=== PATIENT | female | born 1980 | race Caucasian/White ===

== ENCOUNTER 2016-05-29 08:58 | Emergency (ER) | payer OTHER ==
[2016-05-29] MEDS ORDERED: LIDOCAINE 1% INJ-PF (10 MG/ML) 30 ML SDV ONE (10:07)
[2016-05-29] MEDS ORDERED: OXYCODONE-ACETAMINOPHEN 5-325 MG TABLET PO ONE (10:40)
[2016-05-29] MEDS ORDERED: CEPHALEXIN 500 MG CAPSULE PO ONE (10:40)
[2016-05-29] MEDS ORDERED: SULFAMETHOXAZOLE/TRIMETHOPRIM 800-160 MG TABLET PO ONE (10:40)
[2016-05-29] MEDS ORDERED: LIDOCAINE 1% INJ-PF (10 MG/ML) 30 ML SDV INJ ONE (10:40)
--- NOTE | 2016-05-29 10:47 | ER Document Report ---
ED Skin Rash/Insect Bite/Abscs - General Chief Complaint: Abscess Stated Complaint: SKIN CONCERN Time seen by provider: 09:00 Mode of Arrival: Ambulatory Information source: Patient Notes: 36-year-old female presents to ED for abscess to the left side gluteal fold for the last 4 days with increased pain, swelling, and redness over the last 4 day. TRAVEL OUTSIDE OF THE [place] IN LAST 30 DAYS: No - HPI Patient complains to provider of: Tender/swollen area Onset: Other - 4 days Onset/Duration: Gradual, Persistent Quality of pain: Burning, Sharp Severity: Severe Pain Level: 5 Skin Character: Abscess - Left gluteal fold left buttocks Skin Temperature: Warm Quality of rash: Painful Identify cause: No Exacerbated by: Standing, Movement, Walking Relieved by: Denies Similar symptoms previously: Yes Recently seen / treated by doctor: No - Related Data Allergies/Adverse Reactions: No Known Allergies Allergy (Verified 05/29/16 09:08) Past Medical History - General Information source: Patient - Social History Smoking Status: Current Every Day Smoker Cigarette use (# per day): Yes - pack per day Chew tobacco use (# tins/day): Yes Smoking Education Provided: Yes Frequency of alcohol use: Social Drug Abuse: None Occupation: [employer] Lives with: Spouse/Significant other Family History: Arthritis, CAD, CVA, DM, Hypertension Patient has suicidal ideation: No Patient has homicidal ideation: No - Past Medical History Cardiac Medical History: Reports: None Pulmonary Medical History: Reports: None EENT Medical History: Reports: None Neurological Medical History: Reports: None Endocrine Medical History: Reports: None Renal/ Medical History: Reports: None Malignancy Medical History: Reports: None GI Medical History: Reports: None Musculoskeltal Medical History: Reports None Skin Medical History: Reports None Psychiatric Medical History: Reports: None Traumatic Medical History: Reports: None Infectious Medical History: Reports: None Surgical Hx: Negative Past Surgical History: Reports: None Review of Systems - Review of Systems Constitutional: No symptoms reported EENT: No symptoms reported Cardiovascular: No symptoms reported Respiratory: No symptoms reported Gastrointestinal: No symptoms reported Genitourinary: No symptoms reported Female Genitourinary: No symptoms reported Musculoskeletal: No symptoms reported Skin: Other - Large abscess to the left buttocks at the gluteal fold Hematologic/Lymphatic: No symptoms reported Neurological/Psychological: No symptoms reported -: Yes All other systems reviewed and negative Physical Exam - Vital signs Vitals: Temp Pulse Resp BP Pulse Ox 97.6 F 92 16 133/85 H 99 05/29/16 09:03 05/29/16 09:03 05/29/16 09:03 05/29/16 09:03 05/29/16 09:03 Interpretation: Normal - General General appearance: Appears well, Alert - HEENT Head: Normocephalic, Atraumatic Eyes: Normal Pupils: PERRL - Respiratory Respiratory status: No respiratory distress Chest status: Nontender Breath sounds: Normal Chest palpation: Normal - Cardiovascular Rhythm: Regular Heart sounds: Normal auscultation Murmur: No - Abdominal Inspection: Normal Distension: No distension Bowel sounds: Normal Tenderness: Nontender Organomegaly: No organomegaly - Back Back: Normal, Nontender - Extremities General upper extremity: Normal inspection, Nontender, Normal color, Normal ROM , Normal temperature General lower extremity: Normal inspection, Nontender, Normal color, Normal ROM , Normal temperature, Normal weight bearing. No: Maldonado's sign - Neurological Neuro grossly intact: Yes Cognition: Normal Orientation: AAOx4 [place] Coma Scale Eye Opening: Spontaneous Boris Coma Scale Verbal: Oriented Boris Coma Scale Motor: Obeys Commands [place] Coma Scale Total: 15 Speech: Normal Motor strength normal: LUE, RUE, LLE, RLE Sensory: Normal - Psychological Associated symptoms: Normal affect, Normal mood - Skin Skin Temperature: Warm Skin Moisture: Dry Skin Color: Normal Skin irregularity: Abscess - Left buttocks at the gluteal fold Course - Re-evaluation Re-evalutation: 05/29/16 11:30 Patient treated with Septra Keflex and Percocet and discharged home with prescriptions for Keflex and Septra and Percocet. Patient to return in 2 days to have packing removed and possibly replaced. - Vital Signs Vital signs: Temp Pulse Resp BP Pulse Ox 97.8 F 91 20 136/90 H 96 05/29/16 10:58 05/29/16 10:58 05/29/16 10:58 05/29/16 10:58 05/29/16 10:58 Procedures - Incision and Drainage Left Buttock Type: Complex Anesthetic type: 1% Lidocaine mL's of anesthetic: 10 Blade size: 11 I&D procedure: Betadine prep applied, Iodoform packing placed, Sterile dressing applied Incision Method: Incision made by scalpel Amount/type of drainage: copious amounts of purulent foul-smelling drainage Discharge - Discharge Clinical Impression: Abscess Condition: Stable Disposition: HOME, SELF-CARE Instructions: Family Physicians / Practices Additional Instructions: ABSCESS: You have an abscess (boil). This a pus-forming infection, usually due to staph. Some boils may be left to drain on their own, but most require lancing. From the time the tender lump first appears, it may be three or four days before the abscess is ready to bam. Local heat and rest help at this stage of treatment. An antibiotic may prevent spread of the infection. Once the abscess is opened, packing may be placed into it. This is done so pus is not sealed inside by premature closure of the cavity. The packing will be removed at your follow-up visit or you may be advised to remove it yourself at home. Sometimes this packing must be replaced a few times during healing. The wound will heal with surprisingly little scar. Depending on the size and location of an abscess, healing can take one to four weeks. You may shower and wash the area around the incision site two or three times a day. Antibiotics may be prescribed, but are usually not necessary after an abscess has been drained. If you develop fever, chills, worsening pain, or increasing swelling in the area, call the doctor or return immediately. POST INCISION AND DRAINAGE: You have had an incision made to allow drainage of an abscess. The incision must remain open so that pus and debris can drain from the wound. If the abscess cavity is large, packing is placed. This keeps the tissues from collapsing and trapping pus inside, while the body shrinks the cavity. The packing may need to be replaced every day or two. The physician will instruct you on the packing. Keep a bulky dressing over the area. Replace it if it becomes saturated with blood or pus. Do not disturb the packing (if present). You may shower and cleanse the area with gentle soap and warm water two or three times a day. Local warmth may be soothing, and may promote faster healing. Return if you develop high fever or chills, or if you note spreading redness, increasing swelling, or increasing tenderness. ORAL NARCOTIC MEDICATION: You have been given a prescription for pain control. This medication is a narcotic. It's best taken with food, as nausea can result if taken on an empty stomach. Don't operate machinery or drive within six hours of taking this medication. Do not combine this medicine with alcohol, or with any medication which can cause sedation (such as cold tablets or sleeping pills) unless you get permission from the physician. Narcotics tend to cause constipation. If possible, drink plenty of fluids and eat a diet high in fiber and fruits. CEPHALEXIN: The antibiotic you've been prescribed is a member of the cephalosporin class. This type of antibiotic covers a wide variety of infections, including those of the skin, lungs, and urinary tract. It's useful for staph infections. This antibiotic is slightly similar to the penicillin family. In rare cases , a person who is allergic to penicillin will also be allergic to this medication. If you have had a severe allergic reaction to penicillin, and have not taken this antibiotic since that time, notify your doctor. Antibiotics which cover many germs ("broad spectrum" antibiotics) are more likely to cause diarrhea or "yeast" infections. Women prone to vaginal yeast problems may suffer an attack after taking this antibiotic. In infants, oral thrush (white spots "stuck" on the cheek) or yeast diaper rash may result. See your doctor if these problems occur. Call at once if you develop itching, hives , shortness of breath, or lightheadedness. TRIMETHOPRIM-SULFA: You have been given a prescription for trimethoprim-sulfa (TMS, Septra, Bactrim). This is a combination antibiotic of the sulfa class, often used for urinary tract infections, middle ear infections, bronchitis, shigella intestinal infection, and Pneumocystis pneumonia. TMS is usually well-tolerated. Occasional side effects include nausea and decreased appetite. Septra is not recommended for infants less than two months of age. Do not take this medication if you have experienced severe side effects or allergy to sulfa medicine. You should stop this medicine at once and contact your physician if you develop any rash, joint pain, shortness of breath, bruising, or jaundice ( yellow color in the skin), or if you develop any other new or unusual symptoms. FOLLOW-UP CARE: Most simple abscesses will not require a follow up visit. If you had packing placed in the abscess, remove it as instructed by the physician. If you have been referred to a physician for follow-up care, call the physicians office for an appointment as you were instructed or within the next two days. If you experience worsening or a significant change in your symptoms, return to the Emergency Department at any time for re-evaluation. Please return to the emergency room in 48 hours to have this reassessed and possibly repacked. Please bring your packing back with you in case it needs to be repacked. Prescriptions: Oxycodone HCl/Acetaminophen [Percocet 5-325 mg Tablet] 1 tab PO Q6HP PRN #20 tablet PRN Reason: Cephalexin Monohydrate [Keflex 500 mg Capsule] 500 mg PO QID #40 capsule Sulfamethoxazole/Trimethoprim [Septra-Ds 800-160 mg Tablet] 1 tab PO BID #20 tablet Forms: Return to Work
[2016-05-29 11:02] VITALS: BP 136/90
== END 2016-05-29 11:02 | disposition home or self-care (01) ==
LOC: ER 08:58
PROC: 0H98XZZ Drainage of Buttock Skin, External Approach (ICD-10-PCS; principal; 2016-05-29)
DX: L02.31 Cutaneous abscess of buttock (principal); F17.210 Nicotine dependence, cigarettes, uncomplicated
CPT/HCPCS: 10060; 99283; 87070; 87205; 87075; 87077; J3490

== ENCOUNTER 2016-12-14 14:26 | Emergency (ER) | payer OTHER ==
--- NOTE | 2016-12-14 15:33 | ER Document Report ---
ED Skin Rash/Insect Bite/Abscs - General Chief Complaint: Abscess Stated Complaint: ABSCESS Time Seen by Provider: 12/14/16 15:20 Mode of Arrival: Ambulatory Information source: Patient Notes: 36-year-old female presents to ED for vaginal abscess since Saturday. She states she was seen a couple months ago for a abscess at the same area and had an I&D done and was placed on Keflex and Septra and it went away. TRAVEL OUTSIDE OF THE [place] IN LAST 30 DAYS: No - HPI Patient complains to provider of: Tender/swollen area Onset: Other - Saturday Onset/Duration: Gradual Quality of pain: Sharp Severity: Moderate Pain Level: 4 Skin Character: Abscess Quality of rash: Painful Identify cause: No Exacerbated by: Denies Relieved by: Denies Similar symptoms previously: Yes Recently seen / treated by doctor: No - Related Data Allergies/Adverse Reactions: No Known Allergies Allergy (Verified 12/14/16 14:32) Past Medical History - General Information source: Patient - Social History Smoking Status: Current Every Day Smoker Cigarette use (# per day): Yes - Pack per day Chew tobacco use (# tins/day): No Smoking Education Provided: Yes - Less than 2 minutes Frequency of alcohol use: Social Drug Abuse: None Occupation: [employer] Lives with: Spouse/Significant other Family History: Arthritis, CAD, CVA, DM, Hypertension Patient has suicidal ideation: No Patient has homicidal ideation: No - Past Medical History Cardiac Medical History: Reports: None Pulmonary Medical History: Reports: None EENT Medical History: Reports: None Neurological Medical History: Reports: None Endocrine Medical History: Reports: Hx Diabetes Mellitus Type 2 Renal/ Medical History: Reports: None Malignancy Medical History: Reports: None GI Medical History: Reports: None Musculoskeltal Medical History: Reports None Skin Medical History: Reports Hx Cellulitis Psychiatric Medical History: Reports: None Traumatic Medical History: Reports: None Infectious Medical History: Reports: None Past Surgical History: Reports: Hx Section - Immunizations Immunizations up to date: Yes Review of Systems - Review of Systems Constitutional: No symptoms reported EENT: No symptoms reported Cardiovascular: No symptoms reported Respiratory: No symptoms reported Gastrointestinal: No symptoms reported Genitourinary: No symptoms reported Female Genitourinary: No symptoms reported, Other - Painful tender swollen area to her left labia Musculoskeletal: No symptoms reported Skin: Other - Left Bartholin cyst Hematologic/Lymphatic: No symptoms reported Neurological/Psychological: No symptoms reported -: Yes All other systems reviewed and negative Physical Exam - Vital signs Vitals: Temp Pulse Resp BP Pulse Ox 98.5 F 96 14 145/84 H 98 12/14/16 14:32 12/14/16 14:32 12/14/16 14:32 12/14/16 14:32 12/14/16 14:32 Interpretation: Normal - General General appearance: Appears well, Alert - HEENT Head: Normocephalic, Atraumatic Eyes: Normal Pupils: PERRL - Respiratory Respiratory status: No respiratory distress Chest status: Nontender Breath sounds: Normal Chest palpation: Normal - Cardiovascular Rhythm: Regular Heart sounds: Normal auscultation Murmur: No - Abdominal Inspection: Normal Distension: No distension Bowel sounds: Normal Tenderness: Nontender Organomegaly: No organomegaly - Genitourinary External exam: Other - Left Bartholin cyst - Back Back: Normal, Nontender - Extremities General upper extremity: Normal inspection, Nontender, Normal color, Normal ROM , Normal temperature General lower extremity: Normal inspection, Nontender, Normal color, Normal ROM , Normal temperature, Normal weight bearing. No: Maldonado's sign - Neurological Neuro grossly intact: Yes Cognition: Normal Orientation: AAOx4 Boris Coma Scale Eye Opening: Spontaneous [place] Coma Scale Verbal: Oriented Boris Coma Scale Motor: Obeys Commands [place] Coma Scale Total: 15 Speech: Normal Motor strength normal: LUE, RUE, LLE, RLE Sensory: Normal - Psychological Associated symptoms: Normal affect, Normal mood - Skin Skin Temperature: Warm Skin Moisture: Dry Skin Color: Normal Skin irregularity: Abscess - Left Bartholin cyst Course - Vital Signs Vital signs: Temp Pulse Resp BP Pulse Ox 98.6 F 84 18 128/78 H 100 12/14/16 17:39 12/14/16 17:39 12/14/16 17:39 12/14/16 17:39 12/14/16 17:39 Procedures - Incision and Drainage Left Labia Type: Simple Anesthetic type: 1% Lidocaine mL's of anesthetic: 3 Blade size: 11 I&D procedure: Sterile dressing applied, Other - Surgical scrub Incision Method: Incision made by scalpel Amount/type of drainage: Very minimal purulent Discharge - Discharge Clinical Impression: Bartholin cyst Condition: Stable Disposition: HOME, SELF-CARE Instructions: Family Physicians / Practices Additional Instructions: Bartholin Gland Cyst or Abcess The Bartholin glands are located on each side of the entrance to the vagina. These glands secrete lubricating fluid. If a gland becomes plugged, it can create a "Bartholin's cyst." This creates a large bulge on one side of the labia. A cyst is usually not very painful. If a Bartholin's cyst or gland becomes infected, it creates an abscess. This is a painful collection of pus. One side of the labia becomes swollen, red , and painful. It will be very painful to walk or sit. When a Bartholin's cyst causes mild symptoms, it can sometimes be treated with sitz baths and antibiotics. A painful abscess usually needs to be drained ( lanced). If there are signs of infection in the tissues around the abscess, we prescribe antibiotics. Antibiotics are not always necessary for an abscess that' s been drained. If packing has been placed, it's important to follow up as scheduled for removal or replacement of the packing. Return if you have increasing fever, body aches, lightheadedness, or if the swelling and pain is getting worse. POST INCISION AND DRAINAGE: You have had an incision made to allow drainage of an abscess. The incision must remain open so that pus and debris can drain from the wound. If the abscess cavity is large, packing is placed. This keeps the tissues from collapsing and trapping pus inside, while the body shrinks the cavity. The packing may need to be replaced every day or two. The physician will instruct you on the packing. Keep a bulky dressing over the area. Replace it if it becomes saturated with blood or pus. Do not disturb the packing (if present). You may shower and cleanse the area with gentle soap and warm water two or three times a day. Local warmth may be soothing, and may promote faster healing. Return if you develop high fever or chills, or if you note spreading redness, increasing swelling, or increasing tenderness. ORAL NARCOTIC MEDICATION: You have been given a prescription for pain control. This medication is a narcotic. It's best taken with food, as nausea can result if taken on an empty stomach. Don't operate machinery or drive within six hours of taking this medication. Do not combine this medicine with alcohol, or with any medication which can cause sedation (such as cold tablets or sleeping pills) unless you get permission from the physician. Narcotics tend to cause constipation. If possible, drink plenty of fluids and eat a diet high in fiber and fruits. Epsom Salt Soaks Soak the wound area in a container of warm epsom salt water. If you can't get the wound area into a bucket or blount, use a folded towel soaked in the epsom salt solution and apply to the area. Use clean hot tap water (about the temperature of a very warm bath), mixing in about one (1) teaspoon for every pint of water. Two gallon --> 16 teaspoons Epsom Salts One gallon --> 8 teaspoons Epsom Salts Two quarts --> 4 teaspoons Epsom Salts One quart --> 2 teaspoons Epsom Salts Soak the wound for about 20 minutes while gently moving it around in the water. Repeat this four (4) times a day. CEPHALEXIN: The antibiotic you've been dispense pack of [place] is a member of the cephalosporin class. This type of antibiotic covers a wide variety of infections, including those of the skin, lungs, and urinary tract. It's useful for staph infections. This antibiotic is slightly similar to the penicillin family. In rare cases , a person who is allergic to penicillin will also be allergic to this medication. If you have had a severe allergic reaction to penicillin, and have not taken this antibiotic since that time, notify your doctor. Antibiotics which cover many germs ("broad spectrum" antibiotics) are more likely to cause diarrhea or "yeast" infections. Women prone to vaginal yeast problems may suffer an attack after taking this antibiotic. In infants, oral thrush (white spots "stuck" on the cheek) or yeast diaper rash may result. See your doctor if these problems occur. Call at once if you develop itching, hives , shortness of breath, or lightheadedness. TRIMETHOPRIM-SULFA: You have been given a prescription for trimethoprim-sulfa (TMS, Septra, Bactrim). This is a combination antibiotic of the sulfa class, often used for urinary tract infections, middle ear infections, bronchitis, shigella intestinal infection, and Pneumocystis pneumonia. TMS is usually well-tolerated. Occasional side effects include nausea and decreased appetite. Septra is not recommended for infants less than two months of age. Do not take this medication if you have experienced severe side effects or allergy to sulfa medicine. You should stop this medicine at once and contact your physician if you develop any rash, joint pain, shortness of breath, bruising, or jaundice ( yellow color in the skin), or if you develop any other new or unusual symptoms. FOLLOW-UP CARE: Most simple abscesses will not require a follow up visit. If you had packing placed in the abscess, remove it as instructed by the physician. If you have been referred to a physician for follow-up care, call the physicians office for an appointment as you were instructed or within the next two days. If you experience worsening or a significant change in your symptoms, return to the Emergency Department at any time for re-evaluation. Prescriptions: Cephalexin Monohydrate [Keflex 500 mg Capsule] 500 mg PO QID #20 capsule Sulfamethoxazole/Trimethoprim [Septra-Ds 800-160 mg Tablet] 1 tab PO BID #20 tablet Forms: Elevated Blood Pressure, Smoking Cessation Education
[2016-12-14] MEDS ORDERED: HYDROCODONE/ACETAMINOPHEN 5-325 MG 6 TAB/DSPK PO PRN (16:55)
[2016-12-14] MEDS ORDERED: CEPHALEXIN 500 MG CAPSULE PO ONE (16:55)
[2016-12-14] MEDS ORDERED: SULFAMETHOXAZOLE/TRIMETHOPRIM 800-160 MG TABLET PO ONE (16:55)
[2016-12-14 17:40] VITALS: BP 128/78
== END 2016-12-14 17:39 | disposition home or self-care (01) ==
LOC: ER 14:26
PROC: 0U9L0ZZ Drainage of Vestibular Gland, Open Approach (ICD-10-PCS; principal; 2016-12-14)
DX: N75.0 Cyst of Bartholin's gland (principal); F17.210 Nicotine dependence, cigarettes, uncomplicated
CPT/HCPCS: 99283

== ENCOUNTER 2016-12-16 14:47 | Emergency (ER) | payer OTHER ==
[2016-12-16 14:51] VITALS: BP 165/96
[2016-12-16] MEDS ORDERED: LIDOCAINE 1% INJ-PF (10 MG/ML) 30 ML SDV INJ ONE (15:23)
--- NOTE | 2016-12-16 15:28 | ER Document Report ---
ED Skin Rash/Insect Bite/Abscs - General Chief Complaint: Abscess Recheck Stated Complaint: ABSCESS Time Seen by Provider: 12/16/16 15:13 Mode of Arrival: Ambulatory Information source: Patient Notes: 36-year-old female presents to ED for vaginal abscess to the left labia. She states that when she came in here on Saturday and drained well Saturday but by Saturday it had slowed down and stopped by the end of the day. She states she did not soak in the absence of but she has been taking her antibiotics as instructed. She states as Saturday progressed the swelling increased and it is become bigger today. She states that she feels like she is sitting on a golf ball. TRAVEL OUTSIDE OF THE [place] IN LAST 30 DAYS: No - HPI Patient complains to provider of: Tender/swollen area Onset: Other - Saturday Onset/Duration: Gradual, Worse Quality of pain: Pressure, Sharp Severity: Severe Pain Level: 5 Skin Character: Abscess, Swelling Quality of rash: Painful Exacerbated by: Movement, Walking Relieved by: Denies Similar symptoms previously: Yes Recently seen / treated by doctor: Yes - Related Data Allergies/Adverse Reactions: No Known Allergies Allergy (Verified 12/16/16 14:48) Past Medical History - General Information source: Patient - Social History Smoking Status: Current Every Day Smoker Cigarette use (# per day): Yes - ppd Chew tobacco use (# tins/day): No Smoking Education Provided: Yes - less than 2 min Frequency of alcohol use: Occasional Drug Abuse: None, Marijuana Family History: Arthritis, CAD, CVA, DM, Hypertension Patient has suicidal ideation: No Patient has homicidal ideation: No - Past Medical History Cardiac Medical History: Reports: None Pulmonary Medical History: Reports: None EENT Medical History: Reports: None Neurological Medical History: Reports: None Endocrine Medical History: Reports: Hx Diabetes Mellitus Type 2 Malignancy Medical History: Reports: None GI Medical History: Reports: None Musculoskeltal Medical History: Reports None Skin Medical History: Reports Hx Cellulitis - bartholin cyst Psychiatric Medical History: Reports: None Traumatic Medical History: Reports: None Infectious Medical History: Reports: None Past Surgical History: Reports: Hx Section - Immunizations Immunizations up to date: Yes Review of Systems - Review of Systems Constitutional: No symptoms reported EENT: No symptoms reported Cardiovascular: No symptoms reported Respiratory: No symptoms reported Gastrointestinal: No symptoms reported Genitourinary: No symptoms reported Female Genitourinary: Other - Painful left Bartholin's cyst increased in size Musculoskeletal: No symptoms reported Skin: No symptoms reported Hematologic/Lymphatic: No symptoms reported Neurological/Psychological: No symptoms reported -: Yes All other systems reviewed and negative Physical Exam - Vital signs Vitals: Temp Pulse Resp BP Pulse Ox 98.4 F 100 18 165/96 H 98 12/16/16 14:49 12/16/16 14:49 12/16/16 14:49 12/16/16 14:49 12/16/16 14:49 Interpretation: Normal - General General appearance: Appears well, Alert - HEENT Head: Normocephalic, Atraumatic Eyes: Normal Pupils: PERRL - Respiratory Respiratory status: No respiratory distress Chest status: Nontender Breath sounds: Normal Chest palpation: Normal - Cardiovascular Rhythm: Regular Heart sounds: Normal auscultation Murmur: No - Abdominal Inspection: Normal Distension: No distension Bowel sounds: Normal Tenderness: Nontender Organomegaly: No organomegaly - Genitourinary External exam: Other - Large left Bartholin's cyst at the posterior area of the labia - Back Back: Normal, Nontender - Extremities General upper extremity: Normal inspection, Nontender, Normal color, Normal ROM , Normal temperature General lower extremity: Normal inspection, Nontender, Normal color, Normal ROM , Normal temperature, Normal weight bearing. No: Maldonado's sign - Neurological Neuro grossly intact: Yes Cognition: Normal Orientation: AAOx4 [place] Coma Scale Eye Opening: Spontaneous [place] Coma Scale Verbal: Oriented [place] Coma Scale Motor: Obeys Commands [place] Coma Scale Total: 15 Speech: Normal Motor strength normal: LUE, RUE, LLE, RLE Sensory: Normal - Psychological Associated symptoms: Normal affect, Normal mood - Skin Skin Temperature: Warm Skin Moisture: Dry Skin Color: Normal Course - Vital Signs Vital signs: Temp Pulse Resp BP Pulse Ox 98.4 F 100 18 165/96 H 98 12/16/16 14:49 12/16/16 14:49 12/16/16 14:49 12/16/16 14:49 12/16/16 14:49 Procedures - Incision and Drainage Left Labia Time completed: 16:26 Type: Simple Anesthetic type: 1% Lidocaine mL's of anesthetic: 6 Blade size: 11 I&D procedure: Other - surgical scrub Incision Method: Incision made by scalpel Amount/type of drainage: copious amount of purulent foul smelling drainage Discharge - Discharge Clinical Impression: Bartholin's gland abscess Condition: Stable Disposition: HOME, SELF-CARE Instructions: Family Physicians / Practices Additional Instructions: ABSCESS: You have an abscess (boil). This a pus-forming infection, usually due to staph. Some boils may be left to drain on their own, but most require lancing. From the time the tender lump first appears, it may be three or four days before the abscess is ready to bam. Local heat and rest help at this stage of treatment. An antibiotic may prevent spread of the infection. Once the abscess is opened, packing may be placed into it. This is done so pus is not sealed inside by premature closure of the cavity. The packing will be removed at your follow-up visit or you may be advised to remove it yourself at home. Sometimes this packing must be replaced a few times during healing. The wound will heal with surprisingly little scar. Depending on the size and location of an abscess, healing can take one to four weeks. You may shower and wash the area around the incision site two or three times a day. Antibiotics may be prescribed, but are usually not necessary after an abscess has been drained. If you develop fever, chills, worsening pain, or increasing swelling in the area, call the doctor or return immediately. POST INCISION AND DRAINAGE: You have had an incision made to allow drainage of an abscess. The incision must remain open so that pus and debris can drain from the wound. If the abscess cavity is large, packing is placed. This keeps the tissues from collapsing and trapping pus inside, while the body shrinks the cavity. The packing may need to be replaced every day or two. The physician will instruct you on the packing. Keep a bulky dressing over the area. Replace it if it becomes saturated with blood or pus. Do not disturb the packing (if present). You may shower and cleanse the area with gentle soap and warm water two or three times a day. Local warmth may be soothing, and may promote faster healing. Return if you develop high fever or chills, or if you note spreading redness, increasing swelling, or increasing tenderness. ORAL NARCOTIC MEDICATION: You have been given a dispense pack of norco for pain control. This medication is a narcotic. It's best taken with food, as nausea can result if taken on an empty stomach. Don't operate machinery or drive within six hours of taking this medication. Do not combine this medicine with alcohol, or with any medication which can cause sedation (such as cold tablets or sleeping pills) unless you get permission from the physician. Narcotics tend to cause constipation. If possible, drink plenty of fluids and eat a diet high in fiber and fruits. CEPHALEXIN: The antibiotic you've been prescribed is a member of the cephalosporin class. This type of antibiotic covers a wide variety of infections, including those of the skin, lungs, and urinary tract. It's useful for staph infections. This antibiotic is slightly similar to the penicillin family. In rare cases , a person who is allergic to penicillin will also be allergic to this medication. If you have had a severe allergic reaction to penicillin, and have not taken this antibiotic since that time, notify your doctor. Antibiotics which cover many germs ("broad spectrum" antibiotics) are more likely to cause diarrhea or "yeast" infections. Women prone to vaginal yeast problems may suffer an attack after taking this antibiotic. In infants, oral thrush (white spots "stuck" on the cheek) or yeast diaper rash may result. See your doctor if these problems occur. Call at once if you develop itching, hives , shortness of breath, or lightheadedness. TRIMETHOPRIM-SULFA: Continue taking your trimethoprim-sulfa (TMS, Septra, Bactrim). This is a combination antibiotic of the sulfa class, often used for urinary tract infections, middle ear infections, bronchitis, shigella intestinal infection, and Pneumocystis pneumonia. TMS is usually well-tolerated. Occasional side effects include nausea and decreased appetite. Septra is not recommended for infants less than two months of age. Do not take this medication if you have experienced severe side effects or allergy to sulfa medicine. You should stop this medicine at once and contact your physician if you develop any rash, joint pain, shortness of breath, bruising, or jaundice ( yellow color in the skin), or if you develop any other new or unusual symptoms. Epsom Salt Soaks Soak the wound area in a container of warm epsom salt water. If you can't get the wound area into a bucket or blount, use a folded towel soaked in the epsom salt solution and apply to the area. Use clean hot tap water (about the temperature of a very warm bath), mixing in about one (1) teaspoon for every pint of water. Two gallon --> 16 teaspoons Epsom Salts One gallon --> 8 teaspoons Epsom Salts Two quarts --> 4 teaspoons Epsom Salts One quart --> 2 teaspoons Epsom Salts Soak the wound for about 20 minutes while gently moving it around in the water. Repeat this four (4) times a day. FOLLOW-UP CARE: Most simple abscesses will not require a follow up visit. If you had packing placed in the abscess, remove it as instructed by the physician. If you have been referred to a physician for follow-up care, call the physicians office for an appointment as you were instructed or within the next two days. If you experience worsening or a significant change in your symptoms, return to the Emergency Department at any time for re-evaluation. Prescriptions: Cephalexin Monohydrate [Keflex 500 mg Capsule] 500 mg PO Q6H 5 Days capsule Forms: Elevated Blood Pressure, Smoking Cessation Education, Return to Work
[2016-12-16] MEDS ORDERED: HYDROCODONE/ACETAMINOPHEN 5-325 MG 6 TAB/DSPK PO PRN (16:26)
== END 2016-12-16 16:37 | disposition home or self-care (01) ==
LOC: ER 14:47
PROC: 0U9L0ZZ Drainage of Vestibular Gland, Open Approach (ICD-10-PCS; principal; 2016-12-16)
DX: N75.1 Abscess of Bartholin's gland (principal); E11.9 Type 2 diabetes mellitus without complications; F17.210 Nicotine dependence, cigarettes, uncomplicated; Z71.6 Tobacco abuse counseling
CPT/HCPCS: 99282; 56420; A6266; J3490

== ENCOUNTER 2017-03-25 09:42 | Inpatient (IN) | payer OTHER ==
[2017-03-25] MEDS ORDERED: ACETAMINOPHEN 325 MG TABLET PO ONE (11:24)
[2017-03-25] MEDS ORDERED: NORMAL SALINE 1000 ML 1,000 ML IV ONE ×2 (11:37→13:08)
[2017-03-25] MEDS ORDERED: MORPHINE SULFATE 10 MG/ML INJ IV ONE (11:37)
--- NOTE | 2017-03-25 11:54 | ER Document Report ---
ED Skin Rash/Insect Bite/Abscs - General Chief Complaint: Abscess Stated Complaint: POSSIBLE ABSCESS Time Seen by Provider: 03/25/17 11:27 Mode of Arrival: Ambulatory Information source: Patient Notes: Patient states that she has had a vaginal abscess that started yesterday. Patient denies any fever. Patient does report having a previous history of abscess in the past. Patient also reports history of diabetes but took herself off of metformin over a year ago because she did not like the side effects of the medication. Patient states she has had an abscess in this location of the past and has had it drained before. TRAVEL OUTSIDE OF THE [place] IN LAST 30 DAYS: No - HPI Patient complains to provider of: Tender/swollen area Onset: Yesterday Onset/Duration: Gradual Pain Level: 5 Skin Character: Tenderness, Warm Skin Temperature: Warm Quality of rash: Painful Exacerbated by: Movement Relieved by: Denies Similar symptoms previously: Yes Recently seen / treated by doctor: No - Related Data Allergies/Adverse Reactions: No Known Allergies Allergy (Verified 03/25/17 10:45) Home Medications: Current Home Medications No Home Medications 03/25/17 [History] Past Medical History - General Information source: Patient - Social History Smoking Status: Current Every Day Smoker Chew tobacco use (# tins/day): No Frequency of alcohol use: Social Drug Abuse: None Occupation: [employer] Family History: Arthritis, CAD, CVA, DM, Hypertension Patient has suicidal ideation: No Patient has homicidal ideation: No Endocrine Medical History: Reports: Hx Diabetes Mellitus Type 2 Renal/ Medical History: Denies: Hx Peritoneal Dialysis Skin Medical History: Reports Hx Cellulitis Past Surgical History: Reports: Hx Section - Immunizations Immunizations up to date: Yes Review of Systems - Review of Systems Constitutional: No symptoms reported. denies: Fever, Recent illness EENT: No symptoms reported Cardiovascular: No symptoms reported. denies: Chest pain Respiratory: No symptoms reported Gastrointestinal: No symptoms reported. denies: Nausea, Vomiting Genitourinary: No symptoms reported. denies: Dysuria Female Genitourinary: No symptoms reported Musculoskeletal: No symptoms reported Skin: Change in color, Other - Tender swollen area to labia Hematologic/Lymphatic: No symptoms reported Neurological/Psychological: No symptoms reported Physical Exam - Vital signs Vitals: Temp Pulse Resp BP Pulse Ox 97.9 F 104 H 16 156/104 H 99 03/25/17 09:52 03/25/17 09:52 03/25/17 09:52 03/25/17 09:52 03/25/17 09:52 - General General appearance: Appears well, Alert In distress: None - Respiratory Respiratory status: No respiratory distress Chest status: Nontender Breath sounds: Normal Chest palpation: Normal - Cardiovascular Rhythm: Tachycardia Heart sounds: S1 appreciated, S2 appreciated Murmur: No - Genitourinary External exam: Other - Large area of erythema and induration to left labia with an abscess - Back Back: Normal, Nontender - Extremities General upper extremity: Normal inspection, Normal strength General lower extremity: Normal inspection, Normal strength - Neurological Neuro grossly intact: Yes Cognition: Normal Boris Coma Scale Eye Opening: Spontaneous Boris Coma Scale Verbal: Oriented [place] Coma Scale Motor: Obeys Commands [place] Coma Scale Total: 15 - Psychological Associated symptoms: Normal affect, Normal mood - Skin Skin Temperature: Warm Skin Moisture: Dry Skin Color: Erythema - Erythema, induration to left labia Skin irregularity: Abscess Course - Re-evaluation Re-evalutation: 03/25/17 12:[address] Childress regarding patient presentation. Recommends obtaining lactic acid, hemoglobin A1c, and CT abdomen pelvis with IV contrast. 03/25/17 14:[address] Childress regarding the patient's CT report, recommends consultation with test conductor for evaluation. Consulted with Dr. Mensah who does agree to come and evaluate patient in the emergency department. 03/25/17 16:48 Dr. Mensah was to bedside and performed incision and drainage procedure. Reports that she plans to keep patient as an observation admit overnight and continue IV antibiotics. - Vital Signs Vital signs: Temp Pulse Resp BP Pulse Ox 98.4 F 78 16 124/78 100 03/25/17 16:12 03/25/17 16:12 03/25/17 16:12 03/25/17 16:12 03/25/17 16:12 - Laboratory Result Diagrams: 03/25/17 12:10 03/25/17 12:10 Laboratory results interpreted by me: 03/25/17 03/25/17 03/25/17 12:10 12:10 12:10 WBC 11.4 H MCH 33.8 H Seg Neutrophils % 86.9 H Lymphocytes % 7.1 L Absolute Neutrophils 9.9 H Sodium 134.5 L Chloride 97 L Carbon Dioxide 21 L Glucose 285 H Hemoglobin A1c % 8.6 H Direct Bilirubin 0.6 H ALT 61 H Alkaline Phosphatase 164 H Labs- Entire Visit 03/25/17 03/25/17 03/25/17 12:10 12:10 12:10 WBC 11.4 H RBC 4.26 Hgb 14.4 Hct 41.1 MCV 97 MCH 33.8 H MCHC 35.1 RDW 12.1 Plt Count 185 Seg Neutrophils % 86.9 H Lymphocytes % 7.1 L Monocytes % 4.7 Eosinophils % 0.9 Basophils % 0.4 Absolute Neutrophils 9.9 H Absolute Lymphocytes 0.8 Absolute Monocytes 0.5 Absolute Eosinophils 0.1 Absolute Basophils 0.0 Sodium 134.5 L Potassium 4.3 Chloride 97 L Carbon Dioxide 21 L Anion Gap 17 BUN 10 Creatinine 0.55 Est GFR ( Amer) > 60 Est GFR (Non-Af Amer) > 60 Glucose 285 H Hemoglobin A1c % Lactic Acid Calcium 9.0 Total Bilirubin 1.2 Direct Bilirubin 0.6 H Neonat Total Bilirubin Not Reportable Neonat Direct Bilirubin Not Reportable Neonat Indirect Bili Not Reportable AST 35 ALT 61 H Alkaline Phosphatase 164 H Total Protein 6.6 Albumin 4.2 Serum HCG, Qual NEGATIVE 03/25/17 03/25/17 12:10 12:22 WBC RBC Hgb Hct MCV MCH MCHC RDW Plt Count Seg Neutrophils % Lymphocytes % Monocytes % Eosinophils % Basophils % Absolute Neutrophils Absolute Lymphocytes Absolute Monocytes Absolute Eosinophils Absolute Basophils Sodium Potassium Chloride Carbon Dioxide Anion Gap BUN Creatinine Est GFR ( Amer) Est GFR (Non-Af Amer) Glucose Hemoglobin A1c % 8.6 H Lactic Acid 1.0 Calcium Total Bilirubin Direct Bilirubin Neonat Total Bilirubin Neonat Direct Bilirubin Neonat Indirect Bili AST ALT Alkaline Phosphatase Total Protein Albumin Serum HCG, Qual - Diagnostic Test Radiology reviewed: Reports reviewed Discharge - Discharge Clinical Impression: Labial abscess, Hx of diabetes mellitus Condition: Stable Disposition: ADMITTED OBSERVATION Admitting Provider: [facility] Admitted: Medical Floor
[2017-03-25] MEDS ORDERED: CLINDAMYCIN 600 MG/D5W RTU 600 MG/50 ML RTUPB IV ONE (12:03)
[2017-03-25 12:29] LABS: ABSOLUTE EOSINOPHILS # (AUTO) 0.1 10^3/uL (0.0-0.6); ABSOLUTE LYMPHOCYTES (AUTO) 0.8 10^3/uL (0.5-4.7); ABSOLUTE MONOCYTES (AUTO) 0.5 10^3/uL (0.1-1.4); ABSOLUTE NEUT (AUTO) 9.9 10^3/uL (1.7-8.2); BASOPHILS % (AUTO) 0.4 % (0-2); EOSINOPHILS % (AUTO) 0.9 % (0-6); HEMATOCRIT 41.1 % (36.0-47.0); HEMOGLOBIN 14.4 g/dL (12.0-15.5); HGB HCT DIFFERENCE 2.1; LYMPHOCYTES % (AUTO) 7.1 % (13-45); MEAN CORPUSCULAR HEMOGLOBIN 33.8 pg (27.0-33.4); MEAN CORPUSCULAR HGB CONC 35.1 g/dL (32.0-36.0); MEAN CORPUSCULAR VOLUME 97 fl (80-97); MONOCYTES % (AUTO) 4.7 % (3-13); RED BLOOD COUNT 4.26 10^6/uL (3.72-5.28); RED CELL DISTRIBUTION WIDTH 12.1 % (11.5-14.0); SEGMENTED NEUTROPHILS % (AUTO) 86.9 % (42-78); WHITE BLOOD COUNT 11.4 10^3/uL (4.0-10.5)
[2017-03-25 12:48] LABS: ALANINE AMINOTRANSFERASE 61 U/L (9-52); ALBUMIN 4.2 g/dL (3.5-5.0); ALKALINE PHOSPHATASE 164 U/L (38-126); ANION GAP 17 (5-19); ASPARTATE AMINO TRANSFERASE 35 U/L (14-36); BILIRUBIN,DIRECT 0.6 mg/dL (0.0-0.4); BILIRUBIN,TOTAL 1.2 mg/dL (0.2-1.3); BLOOD UREA NITROGEN 10 mg/dL (7-20); CARBON DIOXIDE 21 mmol/L (22-30); CHLORIDE 97 mmol/L (98-107); CREATININE RESULT 0.55 mg/dL (0.52-1.25); GLUCOSE 285 mg/dL (75-110); POTASSIUM 4.3 mmol/L (3.6-5.0); SODIUM 134.5 mmol/L (137-145); TOTAL PROTEIN 6.6 g/dL (6.3-8.2)
[2017-03-25] MEDS ORDERED: HYDROMORPHONE HCL INJ/PF 2 MG/ML AMPULE IV ONE ×2 (13:51→16:39)
--- NOTE | 2017-03-25 14:29 | RADIOLOGY REPORT (SQ) ---
EXAM DESCRIPTION: CT ABD/PELVIS WITH IV ONLY COMPLETED DATE/TIME: 03/25/2017 2:01 pm REASON FOR STUDY: labial abscess, hx DM COMPARISON: None. TECHNIQUE: CT scan of the abdomen and pelvis performed using helical scanning technique with dynamic intravenous contrast injection. No oral contrast. Images reviewed with lung, soft tissue, and bone windows. Reconstructed coronal and sagittal MPR imag es reviewed. Delayed images for evaluation of the urinary system also acquired. All images stored on PACS. All CT scanners at this facility use dose modulation, iterative reconstruction, and/or weight based d osing when appropriate to reduce radiation dose to as low as reasonably achievable (ALARA). [facility]: Dose Right [facility]: CareDose [facility]: Dose Right [facility]: Teradose 4D [facility]: Locus Labs CONTRAST TYPE AND DOSE: contrast/concentration: Isovue 370.00 mg/ml; Total Contrast Delivered: 90.0 ml; Total Saline Delivered: 70.1 ml RENAL FUNCTION: Creatinine 0.55 RADIATION DOSE: CT Rad equipment meets quality standard of care and radiation dose reduction techniq ues were employed. CTDIvol: 12.2 - 16.6 mGy. DLP: 1821 mGy-cm.. LIMITATIONS: None. FINDINGS: Along the left labia in the subcutaneous fat, there is a 6 cm craniocaudad by 6.4 cm AP by 3.7 cm transverse peripheral rim enhancing abscess with surrounding inflammatory change in the adjac ent fat. This is best shown on axial image 106 and coronal image 67. There is no extension into the deep pelvis or ischiorectal fossa fat. LOWER CHEST: No significant findings. No nodules or infiltrates. LIVER: Normal size. No masses. No dilated ducts. SPLEEN: Normal size. No focal lesions. PANCREAS: No masses. No significant calcifications. No adjacent inflammation or peripancreatic fluid collections. Pancreatic duct not dilated. GALLBLADDER: Tiny calcified stones without gallbladder wall thickening or pericholecystic fluid. ADRENAL GLANDS: No significant masses or asymmetry. RIGHT KIDNEY AND URETER: No solid masses. No significant calcifications. No hydronephrosis or hyd roureter. LEFT KIDNEY AND URETER: No solid masses. No significant calcifications. No hydronephrosis or hydr oureter. AORTA AND VESSELS: No aneurysm. No dissection. Renal arteries, SMA, celiac without stenosis. RETROPERITONEUM: No retroperitoneal adenopathy, hemorrhage or masses. BOWEL AND PERITONEAL CAVITY: No masses or inflammatory changes. No free fluid or peritoneal masses. APPENDIX: Normal. PELVIS: No mass. No free fluid. Normal bladder. Normal size uterus and ovaries. 2.8 cm right ovari an cyst. Left labial abscess as above. ABDOMINAL WALL: No masses. No hernias. BONES: No significant or acute findings. OTHER: Multiple enlarged left inguinal lymph nodes are present, likely reactive. These are best show n on coronal reconstruction images 38 through 43, with multiple lymph nodes measuring about 2 x 1 cm in size. IMPRESSION: 6 x 6.4 x 3.7 cm left labial abscess, with reactive left inguinal adenopathy TECHNICAL DOCUMENTATION: JOB ID: [id number] Quality ID # [id number]: Final reports with documentation of one or more dose reduction techniques (e.g., Au tomated exposure control, adjustment of the mA and/or kV according to patient size, use of iterative reconstruction technique) 2010 [employer]- All Rights Reserved
[2017-03-25] MEDS ORDERED: DEXTROSE 50%-WATER 25 GM/50 ML DISP.SYRIN IV PRN ×2 (17:32)
[2017-03-25] MEDS ORDERED: GLUCAGON,HUMAN RECOMB 1 MG INJ IM PRN (17:32)
[2017-03-25] MEDS ORDERED: DEXTROSE 40% GEL 15 GM TUBE PO PRN ×2 (17:32)
--- NOTE | 2017-03-25 17:53 | PDOC CONSULTATION ---
Consultation Consult Date: 03/25/17 Attending physician:: REMIGIO CLINTON Consult reason:: Diabetes management History of Present Illness Admission Date/PCP: 03/25/17 17:07 Patient complains of: pain and swelling History of Present Illness: ANAT NUGENT is a 37 year old female presented with rapidly worsening pain and swelling in the inguinal region started early this morning and became unbearable within a few hours. 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 Patient has underlying diabetes but is noncompliant with medical regimen predisposing to infection. We were consulted for diabetic management. Review of the electronic medical record shows that she was seen here in April of this year for a buttock abscess that was polymicrobial but included Peptostreptococcus. Hemoglobin A1c today is 8.6. The patient reports that she gave up on life 2 years ago after divorce and quit taking all of her medications at that time. She has not followed up with a physician since then. She does not have a glucometer at home. She does report use of metformin in the past but did not tolerate it due to GI discomfort, cramps and diarrhea. She reports sharp, stabbing, constant pain and swelling in the inguinal area with associated chills, pain worse with palpation, improved with pain medicine. She denies blurry vision, nausea, vomiting, diarrhea, numbness or tingling, urinary frequency, polydipsia. She reports sexually active with male in a monogamous relationship who is not having any complaints of penile discharge or dysuria. Past Medical History Cardiac Medical History: Reports: None Pulmonary Medical History: Reports: None Endocrine Medical History: Reports: Diabetes Mellitus Type 2, Gestational Diabetes GI Medical History: Reports: None Infectious Medical History: Reports: Other Infectious History Note: Chlamydia Past Surgical History Past Surgical History: Reports: Section Social History Smoking Status: Current Every Day Smoker Cigarettes Packs Per Day: 1 Number of Years Smokin Frequency of Alcohol Use: Social Hx Recreational Drug Use: Yes Drugs: Marijuana Hx Prescription Drug Abuse: No - Advance Directive Resuscitation Status: Full Code Family History Family History: Arthritis, CAD, CVA, DM, Hypertension Parental Family History Reviewed: Yes Children Family History Reviewed: Yes Sibling(s) Family History Reviewed.: Yes Medication/Allergy Home Medications: No Home Medications 03/25/17 Allergies/Adverse Reactions: No Known Allergies Allergy (Verified 03/25/17 10:45) Review of Systems All systems: reviewed and no additional remarkable complaints except as stated - All systems reviewed, see above, remaining systems negative. Physical Exam Vital Signs: Temp Pulse Resp BP Pulse Ox 98.4 F 78 16 124/78 100 03/25/17 16:12 03/25/17 16:12 03/25/17 16:12 03/25/17 16:12 03/25/17 16:12 General appearance: PRESENT: mild distress - Emotional, obese Head exam: PRESENT: atraumatic, normocephalic Eye exam: ABSENT: conjunctival injection, scleral icterus Mouth exam: PRESENT: moist, neck supple Neck exam: PRESENT: full ROM. ABSENT: lymphadenopathy Respiratory exam: PRESENT: clear to auscultation cesar, unlabored. ABSENT: accessory muscle use Cardiovascular exam: PRESENT: RRR. ABSENT: systolic murmur, tachycardia Pulses: PRESENT: normal radial pulses Vascular exam: PRESENT: normal capillary refill GI/Abdominal exam: PRESENT: normal bowel sounds, soft. ABSENT: tenderness Extremities exam: ABSENT: calf tenderness, clubbing, pedal edema Musculoskeletal exam: PRESENT: ambulatory, full ROM Neurological exam: PRESENT: alert, awake, oriented to person, oriented to place , oriented to time, oriented to situation. ABSENT: motor sensory deficit Psychiatric exam: PRESENT: depressed - Quite tearful Skin exam: PRESENT: dry, warm, other - Calluses on plantar surfaces of the feet Results Laboratory Results: 03/25/17 12:10 03/25/17 12:10 MCV 97 fl (80-97) 03/25/17 12:10 MCH 33.8 pg (27.0-33.4) H 03/25/17 12:10 MCHC 35.1 g/dL (32.0-36.0) 03/25/17 12:10 RDW 12.1 % (11.5-14.0) 03/25/17 12:10 Seg Neutrophils % 86.9 % (42-78) H 03/25/17 12:10 Lymphocytes % 7.1 % (13-45) L 03/25/17 12:10 Monocytes % 4.7 % (3-13) 03/25/17 12:10 Eosinophils % 0.9 % (0-6) 03/25/17 12:10 Basophils % 0.4 % (0-2) 03/25/17 12:10 Absolute Neutrophils 9.9 10^3/uL (1.7-8.2) H 03/25/17 12:10 Absolute Lymphocytes 0.8 10^3/uL (0.5-4.7) 03/25/17 12:10 Absolute Monocytes 0.5 10^3/uL (0.1-1.4) 03/25/17 12:10 Absolute Eosinophils 0.1 10^3/uL (0.0-0.6) 03/25/17 12:10 Absolute Basophils 0.0 10^3/uL (0.0-0.2) 03/25/17 12:10 Chloride 97 mmol/L (98-107) L 03/25/17 12:10 Carbon Dioxide 21 mmol/L (22-30) L 03/25/17 12:10 Anion Gap 17 (5-19) 03/25/17 12:10 Est GFR ( Amer) > 60 (>60) 03/25/17 12:10 Est GFR (Non-Af Amer) > 60 (>60) 03/25/17 12:10 Glucose 285 mg/dL (75-110) H 03/25/17 12:10 Lactic Acid 1.0 mmol/L (0.7-2.1) 03/25/17 12:22 Calcium 9.0 mg/dL (8.4-10.2) 03/25/17 12:10 Total Bilirubin 1.2 mg/dL (0.2-1.3) 03/25/17 12:10 AST 35 U/L (14-36) 03/25/17 12:10 ALT 61 U/L (9-52) H 03/25/17 12:10 Alkaline Phosphatase 164 U/L (38-126) H 03/25/17 12:10 Total Protein 6.6 g/dL (6.3-8.2) 03/25/17 12:10 Albumin 4.2 g/dL (3.5-5.0) 03/25/17 12:10 Serum HCG, Qual NEGATIVE (NEGATIVE) 03/25/17 12:10 Impressions: Abdomen/Pelvis CT 03/25/17 13:07 IMPRESSION: 6 x 6.4 x 3.7 cm left labial abscess, with reactive left inguinal adenopathy Status: Imported from PACS Assessment & Plan - Diagnosis (1) Diabetes Qualifiers: Diabetes mellitus type: type 2 Diabetes mellitus complication status: without complication Diabetes mellitus fci insulin use: without fci use Qualified Code(s): E11.9 - Type 2 diabetes mellitus without complications Is this a current diagnosis for this admission?: Yes Plan: Plan for coverage with sliding scale insulin while hospitalized and initiation of sulfonylurea. The patient has for insurance so there should be no financial concerns regarding medication compliance. She is intolerant of and unwilling to consider metformin. She was counseled regarding the need to establish with a primary care physician for ongoing management of her diabetes. She has never seen an crown attacher and warrants an exam. She was counseled regarding care of her feet pain particular attention to the calluses already present. She was counseled regarding dietary indiscretion and exercise benefits including weight loss. Risks and benefits including adverse reactions to sulfonylureas were described to the patient she states understanding. (2) Medical non-compliance Is this a current diagnosis for this admission?: Yes Plan: She was counseled regarding adverse outcomes related to noncompliance with her diabetes treatment. It is unclear how receptive she was. (3) Labial abscess Is this a current diagnosis for this admission?: Yes Plan: Status post incision and drainage by gynecology. Defer pain medications and IV antibiotics to their discretion. Suggested broad-spectrum antibiotic with gram- negative and anaerobic coverage given previous culture results. - Time Time Spent: 30 to 50 Minutes Medications reviewed and adjusted accordingly: Yes
[2017-03-25] MEDS ORDERED: PIPERACILLIN/TAZOBACTAM 3.375 GM VIAL IV SCH (18:00)
[2017-03-25] MEDS: INSULIN LISPRO 100 UNIT/ML 3 ML VIAL SUBCUT PRN ×2 (18:27→21:57)
[2017-03-25] MEDS ORDERED: PIPERACILLIN SODIUM/TAZOBACTAM 3.375 GM in NORMAL SALINE 100 ML IV ONE (18:30)
[2017-03-25] MEDS ORDERED: OXYCODONE-ACETAMINOPHEN 5-325 MG TABLET PO PRN ×3 (19:49→19:50)
[2017-03-25] MEDS: CLINDAMYCIN 900 MG/D5W RTU 50 ML IV SCH (21:43)
--- NOTE | 2017-03-25 22:05 | PDOC H&P ---
History of Present Illness Admission Date/PCP: 03/25/17 17:07 Patient complains of: left vulvar pain History of Present Illness: ANAT NUGENT is a 37 year old female with Type II DM and non compliant with meds for greater than a year per pt presents with increased vulvar/vaginal swelling and pain for the last 2 days on the left. She reports that she noticed worsening last night and this am and came to the ER. She reports that she has had several abscesses drained in the past from the left side. She denies other medical history and denies being on any medications. She reports being on metformin in the past but not tolerating metformin. Past Medical History LMP: 03/20/2017 Gynecological Infection: Yes - abscesses Baby 1 Female Year: Delivery: : Low Cervical, Vertical Baby 2 Delivery: Other - ETOP, elective termination of Medical History: Other - DM Pulmonary Medical History: Reports: None EENT Medical History: Reports: None Neurological Medical History: Reports: None Endocrine Medical History: Reports: Diabetes Mellitus Type 2 Renal/ Medical History: Reports: None Malignancy Medical History: Reports: None GI Medical History: Reports: None Musculoskeltal Medical History: Reports: None Skin Medical History: Reports: Other - history of multiple vulvar abscesses Psychiatric Medical History: Reports: None, Tobacco Dependency Traumatic Medical History: Reports: None Infectious Medical History: Reports: None Past Surgical History Past Surgical History: Reports: Section, Other - ETOP Social History Information Source: Patient Lives with: Alone Smoking Status: Current Every Day Smoker Cigarettes Packs Per Day: 1 Frequency of Alcohol Use: Social Hx Recreational Drug Use: No Drugs: None Hx Prescription Drug Abuse: No Family History Family History: Arthritis, CAD, CVA, DM, Hypertension Parental Family History Reviewed: No Children Family History Reviewed: NA Sibling(s) Family History Reviewed.: NA Medication/Allergy Home Medications: No Home Medications 03/25/17 Allergies/Adverse Reactions: No Known Allergies Allergy (Verified 03/25/17 10:45) Review of Systems All systems: reviewed and no additional remarkable complaints except as stated Constitutional: PRESENT: chills, fever(s) - subjective last night, no documented fever today Gastrointestinal: ABSENT: abdominal pain, constipation, diarrhea, hematemesis, hematochezia, nausea, vomiting Genitourinary: PRESENT: other - left vulvar pain and pressure. ABSENT: difficulty urinating, dysuria Neurological: ABSENT: abnormal gait, abnormal speech, confusion, dizziness, focal weakness, syncope Psychiatric: ABSENT: anxiety, depression, homidical ideation, suicidal ideation Endocrine: ABSENT: cold intolerance, heat intolerance, polydipsia, polyuria Hematologic/Lymphatic: ABSENT: easy bleeding, easy bruising Physical Exam - Physical Exam Vital Signs: Temp Pulse Resp BP Pulse Ox 98.4 F 78 16 124/78 100 03/25/17 16:12 03/25/17 16:12 03/25/17 16:12 03/25/17 16:12 03/25/17 16:12 General appearance: PRESENT: no acute distress, well-developed, well-nourished Head exam: PRESENT: atraumatic, normocephalic Respiratory exam: PRESENT: clear to auscultation cesar, symmetrical, unlabored. ABSENT: rales, retraction Cardiovascular exam: PRESENT: RRR. ABSENT: diastolic murmur, rubs, systolic murmur Pulses: PRESENT: normal dorsalis pedis pul, +2 pedal pulses bilateral Vascular exam: PRESENT: normal capillary refill GI/Abdominal exam: PRESENT: normal bowel sounds, soft. ABSENT: distended, guarding, mass, organolmegaly, rebound, tenderness Rectal exam: PRESENT: deferred Gentrourinary exam: PRESENT: other - left labial/vulvar and gluteal edema. I&D performed in ER with approx 50cc of purulent drainage obtained. Culture done and sent. Site irrigated and WORD catheter placed. Extremities exam: PRESENT: full ROM. ABSENT: calf tenderness, clubbing, pedal edema Neurological exam: PRESENT: alert, awake, oriented to person, oriented to place , oriented to time, oriented to situation, CN II-XII grossly intact. ABSENT: motor sensory deficit Psychiatric exam: PRESENT: appropriate affect, normal mood. ABSENT: homicidal ideation, suicidal ideation Skin exam: PRESENT: erythema - at left abscess with induration and edema, no crepitus - Gynecological Exam Labia: masses - on left with 6x6cm at least with surrounding edema and induration., tender Urethra: masses - see above, tender Introitus: masses Perineum: masses - see above. I&D performed at site would be for bartholins abscess. 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 However due to size and extent of erythema and induration and risk for infectious complications due to uncontrolled type II DM (including sepsis and necrotizing fasciitis) will admit for observation and 24 hours of IV abx and reassessments of vulva on left for worsening infection and crepitus. Also due to patients non compliance unreliable for close f/u. (2) Medical non-compliance Is this a current diagnosis for this admission?: Yes Plan: Hospitalist consult for evaluation and mangement of DM. 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 Hospitalist consulted for assistance with management of DM uncontrolled and non compliant. Very much appreciate their assistance. - Time Time Spent: 50 to 70 Minutes Critical Time spent with patient: 15-24 minutes Medications reviewed and adjusted accordingly: Yes Anticipated discharge: Home Within: within 48 hours - Inpatient Certification Based on my medical assessment, after consideration of the patient's comorbidities, presenting symptoms, or acuity I expect that the services needed warrant INPATIENT care.: Yes I certify that my determination is in accordance with my understanding of Medicare's requirements for reasonable and necessary INPATIENT services [42 CFR 412.3e].: Yes Medical Necessity: Significant Comorbidiites Make Outpatient Treatment Too Risky , Need Close Monitoring Due to Risk of Patient Decompensation, Need for Pain Control, Need for IV Antibiotics, Risk of Complication if Not Cared For in Hospital 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
[2017-03-25] MEDS: PIPERACILLIN SODIUM/TAZOBACTAM 3.375 GM in NORMAL SALINE 100 ML IV SCH (23:05)
[2017-03-26] MEDS: CLINDAMYCIN 900 MG/D5W RTU 50 ML IV SCH ×3 (05:12→21:18)
[2017-03-26 05:51] LABS: HEMATOCRIT 35.9 % (36.0-47.0); HEMOGLOBIN 12.7 g/dL (12.0-15.5); HGB HCT DIFFERENCE 2.2; MEAN CORPUSCULAR HEMOGLOBIN 34.2 pg (27.0-33.4); MEAN CORPUSCULAR HGB CONC 35.3 g/dL (32.0-36.0); MEAN CORPUSCULAR VOLUME 97 fl (80-97); RED BLOOD COUNT 3.71 10^6/uL (3.72-5.28); RED CELL DISTRIBUTION WIDTH 12.1 % (11.5-14.0); WHITE BLOOD COUNT 9.2 10^3/uL (4.0-10.5)
[2017-03-26 06:09] LABS: ANION GAP 10 (5-19); BLOOD UREA NITROGEN 5 mg/dL (7-20); CALCIUM 8.6 mg/dL (8.4-10.2); CARBON DIOXIDE 26 mmol/L (22-30); CHLORIDE 100 mmol/L (98-107); CREATININE RESULT 0.53 mg/dL (0.52-1.25); GLUCOSE 199 mg/dL (75-110)
[2017-03-26] MEDS: INSULIN LISPRO 100 UNIT/ML 3 ML VIAL SUBCUT PRN ×3 (06:23→21:40)
[2017-03-26] MEDS: PIPERACILLIN SODIUM/TAZOBACTAM 3.375 GM in NORMAL SALINE 100 ML IV SCH ×4 (06:25→23:32)
[2017-03-26] MEDS: GLIPIZIDE 5 MG TABLET PO SCH (08:52)
--- NOTE | 2017-03-26 10:39 | PDOC PROGRESS REPORT ---
Subjective Progress Note for:: 03/26/17 Subjective:: She states that her pain is much better today. She is willing to stay for the IV antibiotics. Reason For Visit: TYPE II DM,VULVAR ABSCESS Physical Exam - Physical Exam Vital Signs: Temp Pulse Resp BP Pulse Ox 98.0 F 75 16 111/54 L 97 03/26/17 08:16 03/26/17 08:16 03/26/17 08:16 03/26/17 08:16 03/26/17 08:16 Intake & Output 03/25/17 03/26/17 03/27/17 06:59 06:59 06:59 Intake Total 580 Output Total 150 Balance 430 Weight 84.6 kg Head exam: PRESENT: atraumatic, normocephalic Gentrourinary exam: PRESENT: lesions - The left vulva is very swollen and red. The pt states that it is much improved from yesterday. - Gynecological Exam Labia: masses - on left with 6x6cm at least with surrounding edema and induration., tender Urethra: masses - see above, tender Introitus: masses Perineum: masses - see above. I&D performed at site would be for bartholins abscess. WORD catheter placed., tender Vagina: normal Cervix: not examined Cervix: not examined Uterus: not examined Rectal: normal Rectovaginal: normal Result Laboratory Results: 03/26/17 05:25 03/26/17 05:25 03/26/17 03/26/17 05:25 05:25 WBC 9.2 RBC 3.71 L Hgb 12.7 Hct 35.9 L MCV 97 MCH 34.2 H MCHC 35.3 RDW 12.1 Plt Count 181 Sodium 136.0 L Potassium 4.0 Chloride 100 Carbon Dioxide 26 Anion Gap 10 BUN 5 L Creatinine 0.53 Est GFR ( Amer) > 60 Est GFR (Non-Af Amer) > 60 Glucose 199 H Calcium 8.6 Impressions: Abdomen/Pelvis CT 03/25/17 13:07 IMPRESSION: 6 x 6.4 x 3.7 cm left labial abscess, with reactive left inguinal adenopathy Assessment & Plan - Diagnosis (1) Labial abscess Is this a current diagnosis for this admission?: Yes - Time Time Spent with patient: 15-24 minutes Anticipated discharge: Home Within: within 36 hours - We will continue the IV antibiotics until the cultures are back and the vulva improves. - Plan Summary Plan Summary: Continue IV antibiotics until cultures return. Her white count was previously elevated but is better today.
--- NOTE | 2017-03-26 11:16 | Physician Advisory Note ---
Physician Advisor ProgressNote .: Pursuant to the plan for [facility], I have reviewed the medical record for this patient. Physician Advisor Statement: Attending, please address in documentation: 1. Progress note 03/26's REGISTRAR ASSISTANT exam appears to be a copy/paste of the REGISTRAR ASSISTANT exam from H&P, including documenting performance of I&D and placement of WORD catheter. Please clarify in documentation: did patient require a repeat procedure on 03/26? Was repeat exam exactly the same as before? - The only time "Copy/paste" is ok to use in documentation is when it is fully edited to be accurate each time. Status: 37yo REtired pt w/underlying uncontrolled DM-2 with recurrent vaginal/Bartholin's gland abscess, large, w/glc 285, hgbA1C 8.6. After 1 night of IV abx, post I&D/WORD catheter placement, pt still w/hyperglycemia around 200 & very swollen red vulva. Attending concerned about risks for infectious complications as described in H&P, & although the area is "much improved" today, it is still too swollen/red, with unknown culture results & ongoing hyperglycemia, to safely send this pt home on po abx. Risks of worsening high, especially if po abx chosen do not fully cover the organism(s) involved. Appropriate to keep in hospital and change to Inpatient status. CK
--- NOTE | 2017-03-26 20:11 | PDOC PROGRESS REPORT ---
Subjective Progress Note for:: 03/26/17 Subjective:: Patient is in less pain. She is eating and drinking without difficulty. No nausea or vomiting. Urinating fine. No bleeding. No fevers or chills. She agrees that taking a diabetes medication is a good idea to help prevent future complications. She agrees to be set up with a new primary care doctor. I provided some diabetic education during this visit. Reason For Visit: I&D PERINEAL ABSCESS AND ANTIBIOTIC ADMINISTRATION Physical Exam Vital Signs: Temp Pulse Resp BP Pulse Ox 98.0 F 70 15 105/58 L 100 03/26/17 12:00 03/26/17 12:00 03/26/17 12:00 03/26/17 12:00 03/26/17 12:00 Intake & Output 03/25/17 03/26/17 03/27/17 06:59 06:59 06:59 Intake Total 580 1222 Output Total 150 900 Balance 430 322 Weight 84.6 kg General appearance: PRESENT: no acute distress, cooperative Head exam: PRESENT: atraumatic, normocephalic Ear exam: PRESENT: normal external ear exam Mouth exam: PRESENT: moist Respiratory exam: PRESENT: clear to auscultation cesar. ABSENT: rales, rhonchi, wheezes Cardiovascular exam: PRESENT: RRR. ABSENT: diastolic murmur, rubs, systolic murmur GI/Abdominal exam: PRESENT: normal bowel sounds, soft. ABSENT: distended, guarding, mass, organolmegaly, rebound, tenderness Musculoskeletal exam: PRESENT: normal inspection Neurological exam: PRESENT: alert, oriented to person, oriented to place, oriented to time, oriented to situation, CN II-XII grossly intact Psychiatric exam: PRESENT: appropriate affect, normal mood Skin exam: PRESENT: dry, warm Results Laboratory Results: 03/26/17 05:25 03/26/17 05:25 03/26/17 03/26/17 05:25 05:25 WBC 9.2 RBC 3.71 L Hgb 12.7 Hct 35.9 L MCV 97 MCH 34.2 H MCHC 35.3 RDW 12.1 Plt Count 181 Sodium 136.0 L Potassium 4.0 Chloride 100 Carbon Dioxide 26 Anion Gap 10 BUN 5 L Creatinine 0.53 Est GFR ( Amer) > 60 Est GFR (Non-Af Amer) > 60 Glucose 199 H Calcium 8.6 Impressions: Abdomen/Pelvis CT 03/25/17 13:07 IMPRESSION: 6 x 6.4 x 3.7 cm left labial abscess, with reactive left inguinal adenopathy Assessment & Plan - Diagnosis (1) Diabetes Qualifiers: Diabetes mellitus type: type 2 Diabetes mellitus complication status: with skin complications Diabetes mellitus chcf insulin use: without chcf use Is this a current diagnosis for this admission?: Yes Plan: Patient has done well with sliding scale insulin and now with a sulfonylurea. She is eating and drinking well. Her point of care blood glucose checks have been in the mid 100s. We will continue current medication plan. Will reassess tomorrow. I also provided some diabetic education, including the importance of sticking with diabetic meds to prevent future complications including infections and neuropathy and also the importance of following up with her primary care doctor. 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 - Time Time Spent with patient: 15-24 minutes
[2017-03-27] MEDS: PIPERACILLIN SODIUM/TAZOBACTAM 3.375 GM in NORMAL SALINE 100 ML IV SCH (05:28)
[2017-03-27] MEDS: CLINDAMYCIN 900 MG/D5W RTU 50 ML IV SCH (06:17)
--- NOTE | 2017-03-27 08:20 | PDOC PROGRESS REPORT ---
Subjective Progress Note for:: 03/27/17 Subjective:: pt stated she wants to go home feeling much better Reason For Visit: I&D PERINEAL ABSCESS AND ANTIBIOTIC ADMINISTRATION Physical Exam - Physical Exam Vital Signs: Temp Pulse Resp BP Pulse Ox 98.6 F 68 18 112/64 100 03/27/17 04:00 03/27/17 04:00 03/27/17 04:00 03/27/17 04:00 03/27/17 04:00 Intake & Output 03/26/17 03/27/17 03/28/17 06:59 06:59 06:59 Intake Total 580 1542 Output Total 150 1350 Balance 430 192 Weight 84.6 kg 76.5 kg - Gynecological Exam Labia: masses - on left with 6x6cm at least with surrounding edema and induration., tender, other - appears to be healing well with some edema Urethra: masses - see above, tender Introitus: normal Perineum: normal, masses - see above. I&D performed at site would be for bartholins abscess. WORD catheter placed., tender Vagina: normal Cervix: not examined Cervix: not examined Uterus: not examined Rectal: normal Rectovaginal: normal Result Laboratory Results: 03/26/17 05:25 03/26/17 05:25 Impressions: Abdomen/Pelvis CT 03/25/17 13:07 IMPRESSION: 6 x 6.4 x 3.7 cm left labial abscess, with reactive left inguinal adenopathy Assessment & Plan - Diagnosis (1) Diabetes Qualifiers: Diabetes mellitus type: type 2 Diabetes mellitus complication status: with skin complications Diabetes mellitus group home insulin use: without group home use Is this a current diagnosis for this admission?: Yes (2) Labial abscess Is this a current diagnosis for this admission?: Yes (3) Medical non-compliance Is this a current diagnosis for this admission?: Yes - Time Time Spent with patient: 15-24 minutes - Plan Summary Plan Summary: d/c f/u 10 days to 2 weeks
[2017-03-27] MEDS: GLIPIZIDE 5 MG TABLET PO SCH (08:31)
--- NOTE | 2017-03-27 08:41 | PDOC DISCHARGE SUMMARY ---
General - Admit/Disc Date/PCP Admission Date/Primary Care Provider: 03/25/17 17:07 Discharge Date: 03/27/17 - Discharge Diagnosis (1) Diabetes Is this a current diagnosis for this admission?: Yes (2) Labial abscess Is this a current diagnosis for this admission?: Yes (3) Medical non-compliance Is this a current diagnosis for this admission?: Yes - Additional Information Resuscitation Status: Full Code Discharge Diet: As Tolerated Discharge Activity: Activity As Tolerated Home Medications: Glipizide [Glucotrol 5 mg Tablet] 5 mg PO QAM 30 Days #30 tablet 03/26/17 Doxycycline Hyclate [Vibramycin 100 mg Tablet] 100 mg PO BID #20 tablet Glucagon,Human Recombinant [Glucagen Inj 1 mg Vial] 1 mg IM PRN PRN vial Ibuprofen [Motrin 800 mg Tablet] 800 mg PO TID #90 tablet 03/27/17 Insulin Lispro [Humalog Insulin (Lispro) 100 unit/mL] 0 - 12 unit SUBCUT ACHSP PRN unit 03/27/17 Metronidazole [Flagyl] 500 mg PO BID #20 tablet 03/27/17 History of Present Illness History of Present Illness: ANAT NUGENT is a 37 year old female Hospital Course Hospital Course: pt admitted with vulvar abcess/bartholin duct abcess. placed on IV antibiotics and drined in the ER. WBC on admission 11.4. pt has done well and is afebrile and wbc is 9. she is ambulatory and is healing well pt is discharged on home antibiotics and given f/u appoitments Physical Exam - Physical Exam Vital Signs: Temp Pulse Resp BP Pulse Ox 98.6 F 68 18 112/64 100 03/27/17 04:00 03/27/17 04:00 03/27/17 04:00 03/27/17 04:00 03/27/17 04:00 Intake & Output 03/26/17 03/27/17 03/28/17 06:59 06:59 06:59 Intake Total 580 1542 Output Total 150 1350 Balance 430 192 Weight 84.6 kg 76.5 kg - Gynecological Exam Labia: masses - on left with 6x6cm at least with surrounding edema and induration., tender, other - appears to be healing well with some edema Urethra: masses - see above, tender Introitus: normal Perineum: normal, masses - see above. I&D performed at site would be for bartholins abscess. WORD catheter placed., tender Vagina: normal Cervix: not examined Cervix: not examined Uterus: not examined Rectal: normal Rectovaginal: normal Result Laboratory Results: 03/26/17 05:25 03/26/17 05:25 Impressions: Abdomen/Pelvis CT 03/25/17 13:07 IMPRESSION: 6 x 6.4 x 3.7 cm left labial abscess, with reactive left inguinal adenopathy Plan Discharge Plan: d/c home f/u 10 days Time Spent: Greater than 30 Minutes
[2017-03-27 08:44] VITALS: BP 112/64
== END 2017-03-27 09:20 | disposition home or self-care (01) | DRG 747 ==
LOC: ER 09:42 → OBSVTOIN 17:07 → EH 17:07 → INTOOBSV 17:07 → 2S 18:10 → OBSVTOIN 03-26 11:00 → UNDODISIN 03-27 09:20
PROVIDERS: ADMIT Student in an Organized Health Care Education/Training Program; ATTEND Student in an Organized Health Care Education/Training Program
PROC: 0U9MXZX Drainage of Vulva, External Approach, Diagnostic (ICD-10-PCS; principal; 2017-03-25)
DX: N76.4 Abscess of vulva (principal); E11.9 Type 2 diabetes mellitus without complications; B95.1 Streptococcus, group B, as the cause of diseases classified elsewhere; F17.210 Nicotine dependence, cigarettes, uncomplicated; Z91.14 Patient's other noncompliance with medication regimen; Z79.4 Long term (current) use of insulin; Z79.899 Other long term (current) drug therapy; Z82.61 Family history of arthritis; Z82.49 Family history of ischemic heart disease and other diseases of the circulatory system; Z82.3 Family history of stroke; Z83.3 Family history of diabetes mellitus
CPT/HCPCS: 36415; 74177; 80048; 80053; 82962; 83036; 83605; 84703; 85025; 85027; 87040; 87070; 87075; 87077; 87205; 96361; 96365; 96375; 96376; 99285; G0378; J1170; J1815; J2270; J2543; J3490; J7030

== ENCOUNTER 2019-10-18 22:25 | Emergency (ER) | payer OTHER ==
--- NOTE | 2019-10-18 22:55 | ER Document Report ---
ED Medical Screen (RME) - General Chief Complaint: Chest Pain Stated Complaint: BLOOD PRESSURE ISSUES/TIGHTNESS OF CHEST Time Seen by Provider: 10/18/19 22:48 Mode of Arrival: Ambulatory Information source: Patient Notes: Patient is an otherwise healthy 39-year-old female presenting to the emergency department with concern for palpitations. Patient reports she is for started having palpitations this morning. EMS was called to her home where they found her to be hypertensive but had a normal EKG. She has no history of hypertension. She states this evening she had the palpitations again and she decided to come to the emergency department. She is also reporting some nonradiating midsternal chest pressure without any other symptoms. Heart sounds S1-S2 present, tachycardic. Patient is flushed, appears anxious. Patient was made an BRAD to by the charge nurse after reviewing her abnormal EKG. I have greeted and performed a rapid initial assessment of this patient. A comprehensive ED assessment and evaluation of the patient, analysis of test results and completion of the medical decision making process will be conducted by additional ED providers. I have specifically instructed the patient or family members with the patient to immediately return to any nursing staff should anything change in the patient's condition or with their chief complaint. TRAVEL OUTSIDE OF THE [place] IN LAST 30 DAYS: No - Related Data Allergies/Adverse Reactions: No Known Allergies Allergy (Verified 03/25/17 10:45) Past Medical History Endocrine Medical History: Reports: Hx Diabetes Mellitus Type 2 Renal/ Medical History: Denies: Hx Peritoneal Dialysis Skin Medical History: Reports Hx Cellulitis Past Surgical History: Reports: Hx Section, Other - ETOP - Immunizations Immunizations up to date: Yes Physical Exam - Vital signs Vitals: Temp Pulse Resp BP Pulse Ox 98.7 F 112 H 16 227/104 H 99 10/18/19 22:32 10/18/19 22:32 10/18/19 22:32 10/18/19 22:32 10/18/19 22:32 Course - Vital Signs Vital signs: Temp Pulse Resp BP Pulse Ox 98.7 F 112 H 16 227/104 H 99 10/18/19 22:32 10/18/19 22:32 10/18/19 22:32 10/18/19 22:32 10/18/19 22:32
[2019-10-18 23:24] LABS: ABSOLUTE BASOPHILS # (AUTO) 0.1 10^3/uL (0.0-0.2); ABSOLUTE LYMPHOCYTES (AUTO) 0.7 10^3/uL (0.5-4.7); ABSOLUTE MONOCYTES (AUTO) 0.4 10^3/uL (0.1-1.4); ABSOLUTE NEUT (AUTO) 5.3 10^3/uL (1.7-8.2); BASOPHILS % (AUTO) 0.8 % (0-2); EOSINOPHILS % (AUTO) 0.5 % (0-6); HEMATOCRIT 42.7 % (36.0-47.0); HEMOGLOBIN 15.1 g/dL (12.0-15.5); MEAN CORPUSCULAR HEMOGLOBIN 34.9 pg (27.0-33.4); MEAN CORPUSCULAR HGB CONC 35.3 g/dL (32.0-36.0); MEAN CORPUSCULAR VOLUME 99 fl (80-97); MONOCYTES % (AUTO) 5.5 % (3-13); PLATELET COUNT 170 10^3/uL (150-450); RED BLOOD COUNT 4.32 10^6/uL (3.72-5.28); SEGMENTED NEUTROPHILS % (AUTO) 82.2 % (42-78); TOTAL CELLS COUNTED % (AUTO) 100 %; WHITE BLOOD COUNT 6.5 10^3/uL (4.0-10.5)
[2019-10-18 23:44] LABS: ALBUMIN 4.5 g/dL (3.5-5.0); ALKALINE PHOSPHATASE 95 U/L (38-126); ANION GAP 8 (5-19); ASPARTATE AMINO TRANSFERASE 32 U/L (14-36); BILIRUBIN,TOTAL 0.7 mg/dL (0.2-1.3); BLOOD UREA NITROGEN 18 mg/dL (7-20); CALCIUM 9.9 mg/dL (8.4-10.2); CARBON DIOXIDE 26 mmol/L (22-30); CHLORIDE 98 mmol/L (98-107); GLUCOSE 355 mg/dL (75-110); POTASSIUM 5.4 mmol/L (3.6-5.0); TOTAL PROTEIN 7.1 g/dL (6.3-8.2)
--- NOTE | 2019-10-19 00:44 | RADIOLOGY REPORT (SQ) ---
CLINICAL INDICATION: chest pressure/palpitations. TECHNIQUE: A single portable AP view was obtained of the chest at 0031 hours. COMPARISON: None. FINDINGS: The cardiomediastinal silhouette appears prominent. The lungs are grossly clear. No evidence of effusion or pneumothorax. The visualized bones are unremarkable. IMPRESSION: No evidence of active intrathoracic disease.
--- NOTE | 2019-10-19 01:48 | ER Document Report ---
ED Cardiac - General Chief Complaint: Palpitations Stated Complaint: BLOOD PRESSURE ISSUES/TIGHTNESS OF CHEST Time Seen by Provider: 10/18/19 22:48 Mode of Arrival: Ambulatory Notes: 39-year-old female with past medical history of diabetes presenting with high blood pressure that began this morning. States her blood pressure was in the 180s over 100s when she was watching TV this morning and she felt that her heart was having palpitations and mild anterior chest pressure. Symptoms persisted intermittently throughout the day. At that time she had a headache as well. Her blood pressure was elevated in the 200s over 100s when she called EMS. Patient states that she took an aspirin for her headache. Currently patient is denying any chest pain, heart palpitations or headache. No shortness of breath or additional symptoms reported. She does have a history of diabetes but she has not been on medications for 2 years. Denies any past history of hypertension. Not have a primary care provider. Menstrual period was 3 weeks ago. Occasional numbness and tingling in her toes. Currently her blood pressure is 174/ 87. TRAVEL OUTSIDE OF THE [place] IN LAST 30 DAYS: No - Related Data Allergies/Adverse Reactions: No Known Allergies Allergy (Verified 03/25/17 10:45) Past Medical History - General Information source: Patient - Social History Smoking Status: Current Every Day Smoker Chew tobacco use (# tins/day): No Frequency of alcohol use: Occasional Drug Abuse: None Family History: Arthritis, CAD, CVA, DM, Hypertension Patient has homicidal ideation: No Endocrine Medical History: Reports: Hx Diabetes Mellitus Type 2 Renal/ Medical History: Reports: None. Denies: Hx Peritoneal Dialysis GI Medical History: Reports: None Musculoskeletal Medical History: Reports None Skin Medical History: Reports Hx Cellulitis Past Surgical History: Reports: Hx Section, Other - ETOP - Immunizations Immunizations up to date: Yes Review of Systems - Review of Systems Constitutional: No symptoms reported EENT: No symptoms reported Cardiovascular: See HPI Respiratory: See HPI Physical Exam - Vital signs Vitals: Temp Pulse Resp BP Pulse Ox 98.7 F 112 H 16 227/104 H 99 10/18/19 22:32 10/18/19 22:32 10/18/19 22:32 10/18/19 22:32 10/18/19 22:32 Interpretation: Hypertensive. No: Bradycardic, Tachycardic, Hypoxic - Notes Notes: Adult General: GENERAL: Alert, interacts well. No acute distress HEAD: Normocephalic, atraumatic EYES: Pupils equal, round and reactive to light. Extraocular movements intact. ENT: Oral mucosa moist, tongue midline. Oropharynx unremarkable. Airway patent. Nares patent. NECK: Full range of motion. Supple. Trachea midline. No lymphadenopathy. LUNGS: Clear to auscultation bilaterally, no wheezes, rales, or rhonchi. No respiratory distress. Nontender chest wall. HEART: Regular rate and rhythm. No murmurs, rubs or gallops. ABDOMEN: Soft, nontender. Nondistended. (-) [place] sign. Bowel sounds present in all 4 quadrants. GENITOURINARY: Deferred EXTREMITIES: Moves all 4 extremities spontaneously. No edema, normal radial and dorsal pedis pulses bilaterally. No cyanosis. BACK: No cervical, thoracic, lumbar midline tenderness. No saddle anesthesia, normal distal neurovascular exam. Moves all extremities with full range of motion. NEUROLOGICAL: Alert and oriented x3. Normal speech. Strength 5/ 5 in all extremities. PSYCH: Normal affect, normal mood. SKIN: Warm, dry, normal turgor. No rashes or lesions noted. Course - Re-evaluation Re-evalutation: 10/19/19 06:20 Patient was reevaluated. She currently denies any chest pain, chest pressure, shortness of breath, headaches or vision changes. Is resting comfortably in the bed. Discussed with patient that we are pending her second troponin. Patient has a heart score of 2 (due to risk factors of diabetes and moderately suspicious history). Patient's blood sugars in the 350s. Her urine also shows sugar. She has no anion gap. No acidosis. She was provided 10 units of insulin to lower blood sugar. 10/19/19 06:22 Patient's second troponin is negative. Patient continues to be resting comfortably in her bed. Continues to deny chest pain, shortness of breath or headache. 10/19/19 06:24 Blood pressures currently 131/82, heart rate of 79. Potassium was 5.4. Repeat blood glucose is 164. Chest x-ray shows no acute intrathoracic disease. Discussed with patient that she has had a negative work-up and that her blood pressure has decreased. As she is currently asymptomatic with a negative work- up I will discharge the patient. Discussed with the patient that she needs to follow-up with a primary care provider for her elevation in blood pressure today as well as her diabetes. I prescribed the patient glipizide 5 mg to restart her diabetes medication but discussed the importance of a primary care follow-up to control her sugars. Patient acknowledges and verbalizes understanding of instructions and plan. all questions answered. 10/19/19 06:33 - Vital Signs Vital signs: Temp Pulse Resp BP Pulse Ox 98.7 F 112 H 21 H 153/89 H 99 10/18/19 22:32 10/18/19 22:32 10/19/19 04:01 10/19/19 04:01 10/19/19 04:01 - Laboratory Result Diagrams: 10/18/19 23:04 10/18/19 23:04 Laboratory results interpreted by me: 10/18/19 10/18/19 10/18/19 22:59 23:04 23:04 MCV 99 H MCH 34.9 H Lymph % (Auto) 11.0 L Seg Neutrophils % 82.2 H Sodium 132.0 L Potassium 5.4 H Glucose 355 H POC Glucose 373 H Urine Glucose (UA) Urine Ketones Ur Leukocyte Esterase 10/19/19 10/19/19 02:35 03:59 MCV MCH Lymph % (Auto) Seg Neutrophils % Sodium Potassium Glucose POC Glucose 164 H Urine Glucose (UA) >=500 H Urine Ketones TRACE H Ur Leukocyte Esterase TRACE H - EKG Interpretation by Me Additional EKG results interpreted by me: 10/19/19 06:32 EKG shows sinus tachycardia at a rate of 102, UT interval of 188, QT is 364, no peaked T waves, no PVCs. Discharge - Discharge Clinical Impression: Elevated blood pressure reading Diabetes type 2, uncontrolled Qualifiers: Glycemic state: with hyperglycemia Qualified Code(s): E11.65 - Type 2 diabetes mellitus with hyperglycemia Condition: Stable Disposition: HOME, SELF-CARE Instructions: High Blood Pressure ([facility]), Diabetes ([facility]) Additional Instructions: A work-up for elevated blood pressure has been unremarkable. Recommend to follow-up with your primary care provider as soon as possible for further evaluation. Your blood sugar is also elevated in the ER today. You were treated with insulin. I have prescribed you glipizide 5 mg to continue taking as this was the medication you were previously on. Please also follow-up with your primary care for your diabetes. Please return to the emergency department if you have worsening symptoms or the development of new symptoms. Prescriptions: Glipizide [Glucotrol 5 mg Tablet] 5 mg PO QAM 15 Days #15 tablet Forms: Elevated Blood Pressure
[2019-10-19 03:03] LABS: APPEARANCE,URINE CLEAR; BILIRUBIN,URINE NEGATIVE (NEGATIVE); COLOR,URINE YELLOW; GLUCOSE, URINE >=500 mg/dL (NEGATIVE); KETONES,URINE TRACE mg/dL (NEGATIVE); LEUKOCYTE ESTERASE,URINE TRACE (NEGATIVE); NITRITE,URINE NEGATIVE (NEGATIVE); PROTEIN,URINE NEGATIVE (NEGATIVE); URINE SPECIFIC GRAVITY 1.024; UROBILINOGEN,URINE NEGATIVE mg/dL (<2.0)
[2019-10-19] MEDS ORDERED: INSULIN REG, HUMAN 100 UNIT/ML 3 ML VIAL (PYX) SUBCUT ONE (03:17)
[2019-10-19] MEDS ORDERED: NORMAL SALINE 1000 ML 1,000 ML IV ONE (03:21)
[2019-10-19 05:30] VITALS: BP 131/82
--- NOTE | 2019-10-19 06:13 | EKG REPORT ---
SEVERITY:- ABNORMAL ECG - SINUS TACHYCARDIA PROBABLE LEFT ATRIAL ABNORMALITY CONSIDER ANTEROSEPTAL INFARCT : Confirmed by: Randell Peters MD 19-Oct-2019 06:12:38
== END 2019-10-19 05:30 | disposition home or self-care (01) ==
LOC: ER 22:25
DX: E11.65 Type 2 diabetes mellitus with hyperglycemia (principal); I10 Essential (primary) hypertension; R00.2 Palpitations; R07.9 Chest pain, unspecified; R51 Headache; R20.0 Anesthesia of skin; F17.200 Nicotine dependence, unspecified, uncomplicated
CPT/HCPCS: 93005; 99285; 96360; 36415; 82962; 85025; 80053; 81001; 84484; 71045; 93010; J1815; J7030